=== PATIENT | male | born 1975 | race Caucasian/White ===

== ENCOUNTER 2017-03-08 16:28 | Emergency (ER) | payer MEDICAID ==
--- NOTE | 2017-03-09 14:58 | NUR ---
SAD person referral. Pt was EPC'd to [facility].
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
== END 2017-03-08 18:45 | disposition short-term general hospital (02) ==
LOC: ER 16:28
DX: F20.9 Schizophrenia, unspecified (principal); F23 Brief psychotic disorder; N39.0 Urinary tract infection, site not specified; J02.9 Acute pharyngitis, unspecified; B19.20 Unspecified viral hepatitis C without hepatic coma; I12.9 Hypertensive chronic kidney disease with stage 1 through stage 4 chronic kidney disease, or unspecified chronic kidney disease; N18.9 Chronic kidney disease, unspecified; F17.210 Nicotine dependence, cigarettes, uncomplicated; E11.9 Type 2 diabetes mellitus without complications; F32.9 Major depressive disorder, single episode, unspecified; F41.9 Anxiety disorder, unspecified; Z79.899 Other long term (current) drug therapy

== ENCOUNTER 2017-03-19 12:09 | Emergency (ER) | payer MEDICAID ==
--- NOTE | 2017-03-21 08:22 | ER ---
ADMIT: 03/19/2017 RM/LOC: ER [facility] MR#: [id number] [address] [facility] [address] [place], [place] [id number] MILADIS GRAY [address] [place] [address] Emergency Room Report SEX: M AGE: 42 : 1975 DATE: 03/19/2017 TIME: 1209 hours. PRIMARY CARE: [facility]. Please refer to my T-sheet for complete H and P. HISTORY OF PRESENT ILLNESS: Briefly, the patient is a 42-year-old, brought in by police for EPC as he was going to hurt himself. He has been hearing voices, telling him that there are people who are coming in to get him. He has a known history of Psychiatric illness, depression, and schizophrenia. He says he took his medications yesterday, not today. He also has a history of substance abuse. He says he used meth 3 to 4 days ago. PHYSICAL EXAMINATION: VITAL SIGNS: Blood pressure 139/99, pulse 112, respirations 22, temp 97.2, and sat 98%. GENERAL: He is anxious. HEENT: Grossly normal. LUNGS: Clear. HEART: Regular. ABDOMEN: Soft. SKIN: No rash. NEURO: He has acute false fixed belief. He says he wants to hurt himself. Does not want to be here, very anxious. Nonfocal otherwise. EMERGENCY DEPARTMENT COURSE: I gave him Zyprexa 10 mg IM. CBC came back normal except white count 13.2. Chemistries normal except potassium 3.1, total bilirubin was 1.6. AST was 113, ALT 122, his T4 was 1.66, TSH is normal, Tylenol and aspirin were negative, ETOH was 7. He was much more improved after Zyprexa. Police are here to evaluate. We organized transfer to [facility] for inpatient psychiatric care. ASSESSMENT: 1. Acute psychosis, improved with Zyprexa. 2. Acute suicidal ideation. 3. Substance abuse. PLAN: The Police will escort him to [facility]. Brody Crowley MD/ arnulfo JOB #: [id number] CC: Brody Crowley MD, Attending Physician Va Perez MD, Family Physician
--- NOTE | 2017-03-21 09:15 | NUR ---
Received SAD person referral. Pt was EPC'd to [facility].
== END 2017-03-19 14:30 ==
LOC: ER 12:09
DX: F23 Brief psychotic disorder (principal); R45.851 Suicidal ideations; F19.159 Other psychoactive substance abuse with psychoactive substance-induced psychotic disorder, unspecified; E11.9 Type 2 diabetes mellitus without complications; F17.210 Nicotine dependence, cigarettes, uncomplicated

== ENCOUNTER 2017-04-05 22:52 | Emergency (ER) | payer MEDICAID ==
--- NOTE | 2017-04-09 13:14 | ER ---
ADMIT: 04/05/2017 RM/LOC: ER [facility] MR#: [id number] [address] [facility] [address] [place], [place] [address] AILYN MILADIS CARDENAS [address] [place] [address] Emergency Room Report SEX: M AGE: 42 : 1975 DATE: 04/05/2017 HISTORY OF PRESENT ILLNESS: The patient is a 42-year-old male was brought here by law enforcement for medical clearance and EPC, allegedly the patient had suicidal thoughts. The patient also admitted to use methamphetamine yesterday. In the ER, the patient was mildly tachycardic, answering questions, cooperative, the patient admitted using methamphetamine yesterday and denies any trauma and denies taking any medications, the patient has a history of depression and schizophrenia and states that he wants to cut himself. PHYSICAL EXAMINATION: HEAD AND NECK: There are no signs of trauma. Pupils are 3 mm, reactive to light. CHEST: Clear. HEART: Normal heart sounds. ABDOMEN: Soft. No signs of trauma or tenderness or rebound. EXTREMITIES: I did not see any obvious signs of traumas with normal peripheral pulses. The rest of the physical exam is noncontributory, the patient states sometimes he has auditory hallucinations, but denies any delusion. The patient had white BC of 13.1 with hemoglobin of 14.3, sodium of 139 and potassium of 3.2 for which he received K-Dur 40 mEq. Glucose was 259, and urine tox was positive for methamphetamine. Tylenol level was negative. Aspirin level was also negative. The patient tolerated p.o., was medically cleared with diagnoses of substance abuse, hypokalemia, and medical clearance. Sergey Robertson MD/ arnulfo JOB #: [id number] CC: Sergey Robertson MD, Attending Physician Vishal Whitehead MD, Family Physician
== END 2017-04-06 00:40 ==
LOC: ER 22:52
DX: F19.10 Other psychoactive substance abuse, uncomplicated (principal); E87.6 Hypokalemia; Z02.89 Encounter for other administrative examinations; F17.210 Nicotine dependence, cigarettes, uncomplicated; F32.9 Major depressive disorder, single episode, unspecified; F20.9 Schizophrenia, unspecified; F41.9 Anxiety disorder, unspecified; Z79.899 Other long term (current) drug therapy